=== PATIENT | female | born 1955 | race Caucasian/White ===

== ENCOUNTER → 2017-06-19 | Outpatient (CLI) | payer BC | LOC: GMAL 12:40 | PROVIDERS: ATTEND Family Medicine | DX: D51.3 Other dietary vitamin B12 deficiency anemia (principal); R53.82 Chronic fatigue, unspecified; I10 Essential (primary) hypertension; E55.9 Vitamin D deficiency, unspecified ==

== ENCOUNTER → 2017-08-11 | Outpatient (CLI) | payer BC ==
--- NOTE | 2017-08-14 03:18 | MAM ---
EXAM DESCRIPTION: 3D Screening BILATERAL : Digital Mammography. CLINICAL HISTORY: 62 years Female ANNUAL SCREENING . Occasional breast tenderness bilaterally. History of fibrocystic disease. No family history of breast cancer. Hysterectomy in 2000. Hormone replacement 5 or more years ago.. COMPARISON: None. No prior reports available. TECHNIQUE: Bilateral CC and MLO projection full-field images, 3-D tomosynthesis digital mammographic technique. Also bilateral synthesized CC/ MLO full-field images. CAD not utilized. FINDINGS: The breast parenchymal density pattern is: Scattered areas of fibroglandular density. No skin thickening or nipple retraction bilateral solitary microcalcifications. Focal asymmetry at the 3:00 position of the anterior third of the right breast 2 cm from the nipple. No associated microcalcifications. No focal, stellate mass or density, focal asymmetry , and no suspicious microcalcifications left breast. IMPRESSION: BI-RADS CATEGORY: 0 - INCOMPLETE- Need additional imaging evaluation. FOLLOW-UP: Recall for additional imaging: Bilateral 3-D tomosynthesis full field LM images. Targeted right breast ultrasound of the region of interest pending diagnostic images.. Written communication concerning the IMPRESSION and Follow-up, will be mailed to the patient and referring health care provider. Electronically signed by: Sav Bliss MD 08/13/2017 4:26 PM CDT
== END ==
LOC: MAMMO 13:46
PROVIDERS: ATTEND Family Medicine
DX: Z12.31 Encounter for screening mammogram for malignant neoplasm of breast (principal)

== ENCOUNTER → 2017-08-24 | Outpatient (CLI) | payer BC ==
--- NOTE | 2017-08-24 11:23 | US ---
EXAM DESCRIPTION: Breast,Right: Ultrasound CLINICAL HISTORY: 62 yearsFemaleABNORMAL MAMMO COMPARISON: Digital diagnostic 3-D tomosynthesis right mammography on this visit. Prior 3-D tomosynthesis screening study this month. TECHNIQUE: Transcutaneous scanning of the right breast utilizing two-dimensional and Doppler modes. Scanning performed by the power plant inspector and Dr. Bliss. FINDINGS: Scanning of the lower inner quadrant of the retroareolar right breast. No distinct solid mass or cyst. No parenchymal edema or large calcifications. No skin changes. No abnormal Doppler vascularity. IMPRESSION: 1. Bi-Rads Category 2: Benign. 2. Please refer to right breast 3-D tomosynthesis diagnostic mammography and report on this visit. The FINDINGS and the FOLLOW-UP plan were reviewed in person with the patient after the examination. Written communication explaining the IMPRESSION and FOLLOW-UP will be mailed to the patient and referring care provider. Electronically signed by: Sav Bliss MD 08/24/2017 11:22 AM CDT
--- NOTE | 2017-08-24 11:24 | MAM ---
EXAM DESCRIPTION: 3D Diagnostic, Right: Digital Mammography CLINICAL HISTORY: 62 yearsFemaleABNORMAL MAMMO focal asymmetry retroareolar right breast.. COMPARISON: 3-D tomosynthesis bilateral screening mammography 08/11/2017. Targeted right breast ultrasound following this examination. Reports from prior examinations also reviewed. TECHNIQUE: Right breast LM projection full-field images, 3-D tomosynthesis digital mammographic technique. Also right breast synthesized LM full-field images. CAD not utilized. FINDINGS: The breast parenchymal density pattern is: Scattered areas of fibroglandular density. No skin thickening or nipple retraction again noted is focal asymmetry in the retroareolar right breast, lower inner quadrant. No definite mass or abnormal calcifications. Ultrasound: Scanning of the lower inner quadrant of the retroareolar right breast. No distinct solid mass or cyst. No parenchymal edema or large calcifications. No skin changes. No abnormal Doppler vascularity. IMPRESSION: BI-RADS CATEGORY: 2 - BENIGN FINDINGS. FOLLOW UP: Return to routine digital bilateral screening, one year interval from July 2017. The FINDINGS and the FOLLOW-UP plan were reviewed in person with the patient after the examination. Written communication explaining the IMPRESSION and FOLLOW-UP will be mailed to the patient and referring care provider. According to the [employer], yearly mammograms are recommended starting at age 40 and continuing as long as a woman is in good health. Any breast change noted on a breast self-exam should be reported promptly to the patient's healthcare provider. Breast MRI is recommended for women with an approximately 20-25% or greater lifetime risk of breast cancer, including women with a strong family history of breast or ovarian cancer and women who have been treated for Hodgkin's disease. A negative mammographic report should not delay tissue diagnosis in patients with significant clinical history or physical findings. Extremely dense breast tissue limits the sensitivity of digital mammography. Electronically signed by: Sav Bliss MD 08/24/2017 11:22 AM CDT
== END ==
LOC: MAMMO 10:12
PROVIDERS: ATTEND Family Medicine
DX: R92.8 Other abnormal and inconclusive findings on diagnostic imaging of breast (principal)
CPT/HCPCS: 76641; 77065; G0279

== ENCOUNTER → 2017-08-31 | Outpatient (CLI) | payer BC | LOC: GMAL 10:28 | PROVIDERS: ATTEND Family Medicine | DX: E34.9 Endocrine disorder, unspecified (principal) ==

== ENCOUNTER → 2018-01-25 | Outpatient (CLI) | payer BC | LOC: GMAL 10:48 | PROVIDERS: ATTEND Family Medicine | DX: D51.3 Other dietary vitamin B12 deficiency anemia (principal); E34.9 Endocrine disorder, unspecified; R53.83 Other fatigue; E55.9 Vitamin D deficiency, unspecified ==

== ENCOUNTER → 2018-02-03 | Outpatient (CLI) | payer BC | LOC: GMAL 14:50 | PROVIDERS: ATTEND Family Medicine | DX: D50.8 Other iron deficiency anemias (principal) ==

== ENCOUNTER → 2018-06-21 | Outpatient (CLI) | payer BC | LOC: GMAL 14:31 | PROVIDERS: ATTEND Family Medicine | DX: E34.9 Endocrine disorder, unspecified (principal) ==

== ENCOUNTER → 2019-07-05 | Outpatient (CLI) | payer BC ==
--- NOTE | 2019-07-06 20:15 | MAM ---
EXAM DESCRIPTION: 3D Screening BILATERAL : Digital Mammography. CLINICAL HISTORY: 64 years Female SCREENING . No complaints. No personal or family history of breast cancer. Menarche age 12. No childbirth. Menopause age unknown. HRT 5 or more years ago.. Lifetime risk of developing breast cancer (Tyrer-Cuzick model)(%): 8.1. COMPARISON: Bilateral screening digital breast tomosynthesis July 2017. Right breast diagnostic digital tomosynthesis and directed ultrasound July 2017.. TECHNIQUE: Bilateral CC and MLO projection full-field images, digital tomosynthesis mammographic technique. Bilateral digital 2-D full-field MLO images. CAD available for 2-D images. FINDINGS: The breast parenchymal density pattern is: Almost completely fatty. No skin thickening or nipple retraction. Bilateral skin mole markers. Solitary microcalcifications. Stable focal asymmetry anterior upper outer quadrant left breast. No new focal, stellate mass or density, focal asymmetry , and no suspicious microcalcifications bilaterally. Stable mammograms compared to prior study. IMPRESSION: Benign exam. BIRAD CATEGORY: 2 BENIGN FINDINGS. RECOMMENDATIONS: FOLLOW UP: Routine digital bilateral mammographic screening, one year interval from June 2019. Written communication explaining the IMPRESSION and follow-up, will be mailed to the patient and referring health care provider. According to the [employer], yearly mammograms are recommended starting at age 40 and continuing as long as a woman is in good health. Any breast change noted on a breast self-exam should be reported promptly to the patient's healthcare provider. Breast MRI is recommended for women with an approximately 20-25% or greater lifetime risk of breast cancer, including women with a strong family history of breast or ovarian cancer and women who have been treated for Hodgkin's disease. A negative mammographic report should not delay tissue diagnosis in patients with significant clinical history or physical findings. Extremely dense breast tissue limits the sensitivity of digital mammography. Electronically signed by: Sav Bliss MD 07/06/2019 8:14 PM CDT
== END ==
LOC: MAMMO 14:00
PROVIDERS: ATTEND Family Medicine
DX: Z12.31 Encounter for screening mammogram for malignant neoplasm of breast (principal)

== ENCOUNTER 2019-09-20 12:22 | Emergency (ER) | payer BC ==
[2019-09-20 12:51] VITALS: O2SAT 99
--- NOTE | 2019-09-20 13:42 | CT ---
PROVIDED CLINICAL HISTORY/REASON FOR EXAM: fall, head injury on aspirin TECHNIQUE: Volumetric CT data of the brain was obtained without intravenous contrast. This exam was performed according to our departmental dose-optimization program, which includes automated exposure control, adjustment of the mA and/or kV according to patient size and/or use of iterative reconstruction technique. COMPARISON: None available. FINDINGS: The ventricles and sulci are normal, without hydrocephalus or significant atrophy. Septum pellucidum and third ventricle are midline. No acute infarction is evident by CT. No acute hemorrhage is present. No mass or mass effect is present. Osseous structures are unremarkable. Right supraorbital scalp soft tissue swelling. The visualized paranasal sinuses are unremarkable. IMPRESSION: 1. No acute intracranial abnormality. 2. Right supraorbital scalp soft tissue swelling. Electronically signed by: Jasson Chin MD 09/20/2019 1:41 PM CDT
--- NOTE | 2019-09-20 13:43 | RAD ---
EXAM DESCRIPTION: Hand,Right 3 Views CLINICAL HISTORY: fall, pain, swelling COMPARISON: None Available. TECHNIQUE: AP, LATERAL, AND OBLIQUE FINDINGS: The visualized bones appear well mineralized. No acute fracture or dislocation. Mild degenerative changes are identified in the first carpometacarpal, first second and third metacarpophalangeal and interphalangeal joints. The soft tissues appear grossly unremarkable. IMPRESSION: No acute traumatic abnormality of the right hand. Electronically signed by: Christin Mei MD 09/20/2019 1:41 PM CDT
--- NOTE | 2019-09-20 13:43 | RAD ---
EXAM DESCRIPTION: Wrist,Right 3 Views CLINICAL HISTORY: 64 years Female, fall, pain, swelling COMPARISON: None available. FINDINGS: The visualized bones are well-mineralized.No acute fracture or dislocation. Mild osteoarthritis of the first carpometacarpal joint. The soft tissues appear grossly unremarkable. IMPRESSION: No acute traumatic abnormality of the right wrist. Electronically signed by: Christin Mei MD 09/20/2019 1:42 PM CDT
--- NOTE | 2019-09-20 13:56 | ED.PDOC ---
History of Present Illness - General Chief Complaint: Trauma Stated Complaint: s/p fall Time Seen by Provider: 09/20/19 13:09 Source: patient Exam Limitations: no limitations Additional Information: The patient is a 64 year old who presents for evaluation of head and hand injury. Fell on her porch three days prior, hit her head, right hand and knee. No loss of consciousness, no neck pain. She has swelling and bruising around her right eye, pain and swelling to her right hand and knee. She has been ambulatory. PCP referred to the ED for CT imaging due to possible intracranial injury as she is on aspirin. - History of Present Illness Allergies/Adverse Reactions: Allergies NO KNOWN ALLERGY Allergy (Verified 09/20/19 13:29) Home Medications: Ambulatory Orders Aspirin [Aspirin Adult Low Dose] 81 mg PO DAILY 09/20/19 Carvedilol 3.125 mg PO BID 09/20/19 Lisinopril 10 mg PO DAILY 09/20/19 Loratadine 10 mg PO DAILY 09/20/19 Omeprazole Magnesium [Prilosec Otc] 20 mg PO DAILY 09/20/19 Rosuvastatin Calcium 40 mg PO DAILY 09/20/19 Review of Systems - Review of Systems Constitutional: Denies: chills, fever EENTM: States: other - swelling around right eye. Denies: eye pain, blurred vision Respiratory: States: no symptoms reported Cardiology: States: no symptoms reported Gastrointestinal/Abdominal: States: no symptoms reported Genitourinary: States: no symptoms reported Skin: States: no symptoms reported Neurological: States: headache. Denies: numbness, paresthesia, tingling, weakness Endocrine: States: no symptoms reported Hematologic/Lymphatic: States: no symptoms reported All other Systems: No Change from Baseline Past Medical History (General) - Patient Medical History Hx Stroke: No Hx Cardiac Disorders: Yes Hx Congestive Heart Failure: No Hx Hypertension: Yes Hx Diabetes: No Surgical History: Hysterectomy - Vaccination History Hx Influenza Vaccination: Yes Hx Pneumococcal Vaccination: No - Social History Hx Tobacco Use: No Family Medical History - Family History Mother Family History: Unknown Living Status: Unknown Physical Exam - Physical Exam General Appearance: Comfortable, No apparent distress Ears, Nose, Throat: hearing grossly normal, normal ENT inspection Neck: non-tender, full range of motion, supple, normal inspection Respiratory: no respiratory distress Extremity: normal range of motion, swelling, other - moderate swelling to right hand, diffuse ecchymosis. Normal ROM. Normal capillary refill. Tendons, nerves intact. Neurologic: no motor/sensory deficits, alert, normal mood/affect, oriented x 3 Progress - Progress Progress: 09/20/19 13:57 Patient reassessed, reviewed imaging results. Discussed local wound care and follow up with PCP. Home care instructions and return indications reviewed. - EKG/XRAY/CT XRAY: hand - no acute traumatic injury CT: No acute intracranial injury, soft tissue swelling CT Ordered: Yes - Additional EKG/XRAY/Consults XRAY #2: Wrist Comments: No acute traumatic Injury Departure - Departure Clinical Impression: Closed head injury Qualifiers: Encounter type: initial encounter Qualified Code(s): S09.90XA - Unspecified injury of head, initial encounter Hand contusion Qualifiers: Encounter type: initial encounter Laterality: left Qualified Code(s): S60.222A - Contusion of left hand, initial encounter Time of Disposition: 13:59 Disposition: Discharge to Home or Self Care Condition: Excellent Departure Forms: ED Discharge - Pt. Copy, Patient Portal Self Enrollment Instructions: DI for Trauma Diet: resume usual diet Activity: increase activity as tolerated Referrals: Sohail Villalobos III, MD [Primary Care Provider] - 1-2 Weeks Home Medications: Ambulatory Orders Aspirin [Aspirin Adult Low Dose] 81 mg PO DAILY 09/20/19 Carvedilol 3.125 mg PO BID 09/20/19 Lisinopril 10 mg PO DAILY 09/20/19 Loratadine 10 mg PO DAILY 09/20/19 Omeprazole Magnesium [Prilosec Otc] 20 mg PO DAILY 09/20/19 Rosuvastatin Calcium 40 mg PO DAILY 09/20/19
[2019-09-20 14:22] VITALS: BP 145/77; TEMP 97.5
== END 2019-09-20 14:15 | disposition home or self-care (01) ==
LOC: ER 12:22
DX: S09.90XA Unspecified injury of head, initial encounter (principal); S60.222A Contusion of left hand, initial encounter; I10 Essential (primary) hypertension; Z79.899 Other long term (current) drug therapy; Z79.82 Long term (current) use of aspirin; W10.8XXA Fall (on) (from) other stairs and steps, initial encounter; Y92.9 Unspecified place or not applicable

== ENCOUNTER → 2019-12-27 | Outpatient (CLI) | payer BC | LOC: GMAL 14:59 | PROVIDERS: ATTEND Family Medicine | DX: D51.3 Other dietary vitamin B12 deficiency anemia (principal); I10 Essential (primary) hypertension; E78.49 Other hyperlipidemia ==